=== PATIENT | female | born 1995 | race Caucasian/White ===

== ENCOUNTER 2016-09-20 00:52 | Emergency (ER) | payer OTHER ==
[~2016-09-20] VITALS: Ht 172.7 cm; Wt 72.0 kg
[~2016-09-20 00:52] MED LIST: ADAL40KI SQ; DABI150C PO; LACT1CAP73 PO
[2016-09-20 00:55] VITALS: Ht 172.7 cm; Wt 72.0 kg
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
--- NOTE | 2016-09-20 01:36 | NUR ---
FRIENDS TWO FRIENDS AT BEDSIDE.
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
--- NOTE | 2016-09-20 01:51 | NUR ---
CT PT TO CT SCAN.
--- NOTE | 2016-09-20 02:10 | NUR ---
RETURN PT RETURNS FROM CT SCAN.
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
[2016-09-20 03:05] VITALS: BP 105/72; PULSE 53; RESP 16; TEMP 99; O2SAT 100
--- NOTE | 2016-09-20 03:05 | NUR ---
DISMISSAL INSTRUCTIONS AND SCHOOL NOTE GIVEN/REVIEWED WITH PT AND FRIENDS. VERBALIZE UNDERSTANDING. PT LEAVES DEPT AMBULATORY UPON DISMISSAL.
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
== END 2016-09-20 03:05 | disposition home or self-care (01) ==
LOC: ED 00:52
DX: S00.531A Contusion of lip, initial encounter (principal); M54.2 Cervicalgia; V47.0XXA Car driver injured in collision with fixed or stationary object in nontraffic accident, initial encounter; Y93.89 Activity, other specified; Y92.410 Unspecified street and highway as the place of occurrence of the external cause; Y99.8 Other external cause status